=== PATIENT | male | born 1985 | race Caucasian/White ===

== ENCOUNTER 2018-07-07 06:21 | Emergency (ER) | payer MEDICAID, OTHER ==
[~2018-07-07] VITALS: Ht 185.4 cm; Wt 84.1 kg
[~2018-07-07 06:21] MED LIST: ARIP400S IM; BENZ1TAB7 PO; CLON0.5T9 PO; DOCU250C88 PO; LITH300C43 PO; LORA1TAB PO; LURA40TA PO; LURA80TA PO; METAMUCIL425 GM PO; OLAN10VI4 IM; VITC500T PO
[2018-07-07 07:16] VITALS: BP 122/77
== END 2018-07-07 07:17 | disposition home or self-care (01) ==
LOC: EEVIPCON 06:21 → ER 06:21
DX: F29 Unspecified psychosis not due to a substance or known physiological condition (principal); F41.9 Anxiety disorder, unspecified; Z88.8 Allergy status to other drugs, medicaments and biological substances; Z79.899 Other long term (current) drug therapy
CPT/HCPCS: 99284

== ENCOUNTER 2018-07-14 11:04 | Emergency (ER) | payer OTHER ==
[~2018-07-14] VITALS: Ht 154.9 cm; Wt 84.1 kg
[2018-07-14 11:45] LABS: BASOPHILS # (AUTO) 0.1 X10'3 (0-0.2); BASOPHILS % (AUTO) 0.6 % (0-1); EOSINOPHILS # (AUTO) 0.1 X10'3 (0-0.9); EOSINOPHILS % (AUTO) 1.2 % (0-6); HEMATOCRIT 48.9 % (42.0-52.0); HEMOGLOBIN 16.4 g/dl (14.0-17.9); LYMPHOCYTES # (AUTO) 1.6 X10'3 (1.1-4.8); LYMPHOCYTES % (AUTO) 18.9 % (21-51); MEAN CORPUSCULAR HEMOGLOBIN 30.6 PG (27.0-31.0); MEAN CORPUSCULAR HGB CONC 33.5 % (33.0-36.5); MEAN CORPUSCULAR VOLUME 91.3 FL (78-98); MEAN PLATELET VOLUME 8.6 FL (7.4-10.4); MONOCYTES # (AUTO) 0.9 X10'3 (0-0.9); NEUTROPHILS # (AUTO) 5.8 X10'3 (1.8-7.7); NEUTROPHILS % (AUTO) 68.3 % (42-75); PLATELET COUNT 209 X10'3 (140-440); RED BLOOD COUNT 5.36 X10'6 (4.70-6.10); WHITE BLOOD COUNT 8.5 X10'3 (4.5-11.0)
[2018-07-14 12:01] LABS: ALANINE AMINOTRANSFERASE 27 U/L (12-78); ALBUMIN 4.3 G/DL (3.4-5.0); ALBUMIN/GLOBULIN RATIO 1.3 (1.1-1.5); ALKALINE PHOSPHATASE 101 IU/L (46-116); ANION GAP 9 (8-16); ASPARTATE AMINO TRANSFERASE 19 U/L (10-37); BILIRUBIN,TOTAL 0.6 MG/DL (0.1-1.0); BLOOD UREA NITROGEN 17 MG/DL (7-18); CALCIUM 9.5 MG/DL (8.5-10.1); CHLORIDE 101 MMOL/L (99-107); CREATININE 0.85 MG/DL (0.60-1.10); ETHANOL < 0.010 GM/DL (0.0-0.010); GLUCOSE 96 MG/DL (70-104); POTASSIUM 4.1 MMOL/L (3.5-5.1); SODIUM 138 MMOL/L (135-145); TOTAL CARBON DIOXIDE 27.6 MMOL/L (24-32); TOTAL PROTEIN 7.5 G/DL (6.4-8.2); eGFR > 90 ML/MIN
[2018-07-14] MEDS ORDERED: CLOZ200T PO (13:20)
[2018-07-14] MEDS ORDERED: PROP10TA10 PO (13:43)
[2018-07-14 13:52] LABS: CLARITY,URINE CLEAR (Clear); COLOR,URINE YELLOW (Yellow); GLUCOSE, URINE NEGATIVE (Neg); KETONES,URINE NEGATIVE (Neg); LEUKOCYTE ESTERASE ,URINE NEGATIVE (Neg); NITRITES, URINE NEGATIVE (Neg); OCCULT BLOOD,URINE NEGATIVE (Neg); PROTEIN,URINE NEGATIVE (Neg); UROBILINOGEN,URINE 0.2 E.U/dL (0.2-1.0)
[2018-07-14 13:55] LABS: UA COLLECTION TYPE CLN CATCH MIDSTREAM
[2018-07-14 14:04] LABS: URINE AMPHETAMINE SCREEN NEGATIVE (Neg); URINE BARBITUATE SCREEN NEGATIVE (Neg); URINE BENZODIAZEPINES SCREEN NEGATIVE (Neg); URINE CANNABINOID SCREEN NEGATIVE (Neg); URINE COCAINE SCREEN NEGATIVE (Neg); URINE METHADONE SCREEN NEGATIVE (Neg); URINE OPIATE SCREEN NEGATIVE (Neg); URINE PHENCYCLIDINE SCREEN NEGATIVE (Neg)
[2018-07-14 17:35] VITALS: BP 113/67
[2018-07-14] MEDS ORDERED: LORazepam 1 MG tablet PO ONE (19:35)
[2018-07-14] MEDS ORDERED: docusate sod 250mg capsule PO SCH (20:00)
[2018-07-14] MEDS ORDERED: propranolol 10mg tablet PO SCH (20:00)
[2018-07-14] MEDS ORDERED: clozapine 100mg tablet PO SCH (21:00)
== END 2018-07-14 20:25 ==
LOC: ER 11:05
DX: F99 Mental disorder, not otherwise specified (principal); Z88.8 Allergy status to other drugs, medicaments and biological substances; Z79.899 Other long term (current) drug therapy
CPT/HCPCS: 36415; 80053; 80305; 80320; 81003; 85025; 99285

== ENCOUNTER 2019-04-16 19:59 | Emergency (ER) | payer MEDICAID ==
[~2019-04-16 19:59] MED LIST changes: -ARIP400S IM; -BENZ1TAB7 PO; -CLON0.5T9 PO; +CLOZ200T PO; -LITH300C43 PO; -LORA1TAB PO; -LURA40TA PO; -LURA80TA PO; -METAMUCIL425 GM PO; -OLAN10VI4 IM; +PROP10TA10 PO; -VITC500T PO
[2019-04-16 20:06] VITALS: BP 116/65
--- NOTE | 2019-04-16 20:24 | NUR ---
PT IS NOT ANSWERING QUESTIONS, PT KEEPS TRYING TO QUOTE THE BIBLE.
== END 2019-04-16 21:06 | disposition home or self-care (01) ==
LOC: ER 20:00
DX: S01.01XA Laceration without foreign body of scalp, initial encounter (principal); Z88.1 Allergy status to other antibiotic agents; Z88.8 Allergy status to other drugs, medicaments and biological substances; Z79.899 Other long term (current) drug therapy; W55.12XA Struck by horse, initial encounter; Y93.83 Activity, rough housing and horseplay; Y92.89 Other specified places as the place of occurrence of the external cause; Y99.8 Other external cause status
CPT/HCPCS: 12001; 12011; 99283

== ENCOUNTER 2023-02-19 22:22 | Emergency (ER) | payer MEDICAID, OTHER ==
[~2023-02-19] VITALS: Ht 185.4 cm; Wt 69.5 kg
[~2023-02-19 22:22] MED LIST changes: -CLOZ200T PO; +CLOZ200T8 PO; -DOCU250C88 PO; +DOCU250C89 PO
[2023-02-19 22:25] VITALS: BP 122/84
== END 2023-02-19 23:12 ==
LOC: ER 22:23
DX: S00.211A Abrasion of right eyelid and periocular area, initial encounter (principal); Z88.8 Allergy status to other drugs, medicaments and biological substances; X58.XXXA Exposure to other specified factors, initial encounter; Y93.89 Activity, other specified; Y92.89 Other specified places as the place of occurrence of the external cause; Y99.8 Other external cause status
CPT/HCPCS: 99283